=== PATIENT | male | born 1955 | race Caucasian/White ===

== ENCOUNTER 2018-09-16 13:09 | Outpatient (CLI) | payer BC ==
[~2018-09-16 13:09] MED LIST: Magnevist 469MG/ML 20 ML VIAL ONE
--- NOTE | 2018-09-16 17:28 | CT ---
CT TEMPORAL BONES NONCONTRAST: DATE: 09/16/2018. Attention Cindy in billing: The patient should not be charged for the interpretation of this study. HISTORY: A 63-year-old male with H91.90, unspecified hearing loss. The patient was scheduled for MRI of the brain and IACs. He gives a history of surgery in his ear in the 1970s. He does not have any CTs of the temporal bones to evaluate for possible metallic ossicul ar prosthesis (a metallic ossicular prosthesis may be too small to be visible on plain radiograph of the skull). This is for clearance for that MRI. FINDINGS: There is no ossicular erosion, resection, or replacement by prosthesis. The right ossicles are vick l. The left incus body/malleolus head complex is rotated slightly in the clockwise direction when vi ewed on coronal images, such that the left Prussak's space is narrowed. The left scutum is blunted, and this may be related to the previous ear surgery of which the patient states. The left external a uditory canal is widened. The left tympanic membrane is medially retracted and abuts the cochlear pr omontory. The bilateral external auditory canals, middle ear cavities, mastoid antra, and mastoid ai r cells, are clear. No morphologic abnormality of the internal auditory canals, semicircular canals, cochleae, vestibules, vestibular aqueducts, carotid canals, or jugular bulbs. No large dehiscence o f tegmen tympani. Right scutum is intact. IMPRESSION: 1. No ossicular prosthesis. The patient is cleared for MRI. 2. Retraction of left tympanic membrane. 3. Slightly altered positioning of left ossicles. POS: [facility]
--- NOTE | 2018-09-16 17:36 | MRI ---
MRI BRAIN AND INTERNAL AUDITORY CANALS WITH AND WITHOUT CONTRAST: HISTORY: 63-year-old male with unspecified hearing loss H91.90, and dizziness. TECHNIQUE: Multiple sequences obtained in axial, sagittal, and coronal planes; both whole brain images and thin slices through the IAC's, pre and post IV injection of gadolinium-based contrast agent: 20 mL MultiHa nce. FINDINGS: The ventricles are normal in size and configuration. There is no restricted diffusion, abnormal intr aaxial enhancement, mass, midline shift or any other mass effect, recent intraaxial hemorrhage, or ex traaxial fluid collection. There is are T2-hyperintensities in the cerebral white matter consistent w ith chronic ischemic white matter changes due to microvascular atherosclerosis. There is no abnormal enhancement, mass, or morphologic abnormality, involving the cerebellopontine an gles, 7th-8th nerve complexes, internal auditory canals, cochleae, vestibules, vestibular aqueducts, or semicircular canals. IMPRESSION: 1. Moderate-severe chronic ischemic white matter changes. 2. Otherwise negative. jn[] POS: [facility]
== END 2018-09-16 13:10 | disposition home or self-care (01) ==
LOC: BICMRI 13:09
PROVIDERS: ATTEND Otolaryngology Plastic Surgery within the Head & Neck
DX: H91.90 Unspecified hearing loss, unspecified ear (principal); G93.89 Other specified disorders of brain
CPT/HCPCS: 70480; 70553; 82565; A9579